=== PATIENT | female | born 1955 | race Caucasian/White ===

== ENCOUNTER → 2022-12-22 | Outpatient (CLI) | payer MEDICARE ==
[~2022-12-22] MED LIST: IOPAMIDOL 370 MG/ML 100 ML INFUS..BTL INJ ONE; SODIUM CHLORIDE 0.9% 250ML 250 ML ONE
[2022-12-22 08:57] LABS: CREATININE, SERUM 0.78 mg/dL (0.57-1.11)
== END ==
LOC: CT 08:10
PROVIDERS: ATTEND Urology
DX: R31.29 Other microscopic hematuria (principal)
CPT/HCPCS: 36415; 74178; 82565; 84520; J7050; Q9967

== ENCOUNTER 2023-05-17 12:17 | Inpatient (IN) | payer MEDICARE ==
[~2023-05-17] VITALS: Ht 152.4 cm; Wt 72.6 kg
[~2023-05-17 12:17] MED LIST changes: +ESTRADIOL1 MG VG; +FRUIT & VEGETA1 EACH PO; -IOPAMIDOL 370 MG/ML 100 ML INFUS..BTL INJ ONE; +MACROBID 100 M100 MG PO; +NP THYROID60 MG PO; +NUTRAFOL PO; +PROTONIX20 MG PO; -SODIUM CHLORIDE 0.9% 250ML 250 ML ONE; +SOMA350 MG PO; +UQORA PO; +VITAMIN D3 COM1 EACH PO
[2023-05-17] MEDS ORDERED: ASPIRIN 81 MG CHEW TAB PO ONE (12:30)
[2023-05-17] MEDS ORDERED: FENTANYL CITRATE/PF 100MCG/2 ML INJ IV ONE (12:30)
[2023-05-17 12:36] LABS: BASOPHILS % 0.3 % (0.0-1.0); EOSINOPHILS # (AUTO) 0.1 (0.0-0.4); EOSINOPHILS % 1.2 % (0.0-6.0); HEMATOCRIT 35.7 % (34.2-44.1); HEMOGLOBIN 12.3 g/dL (12.0-16.0); LYMPHOCYTES # (AUTO) 1.3 (1.0-3.2); LYMPHOCYTES % 13.1 % (18.0-39.1); MEAN CORPUSCULAR HEMOGLOBIN 32.4 pg (28-32); MEAN CORPUSCULAR HGB CONC 34.5 g/dL (31-35); MEAN CORPUSCULAR VOLUME 93.9 fL (81-99); MONOCYTES # (AUTO) 0.6 (0.2-0.8); MONOCYTES % 5.8 % (4.4-11.3); NEUTROPHILS # (AUTO) 7.9 (2.1-6.9); NEUTROPHILS % 79.4 % (38.7-80.0); PLATELET COUNT 214 x10e3/uL (140-360); RED CELL DISTRIBUTION WIDTH 12.6 % (11.7-14.4); WHITE BLOOD COUNT 9.96 x10e3/uL (4.8-10.8)
[2023-05-17 12:53] LABS: ANION GAP 15.6 mmol/L (8-16); BLOOD UREA NITROGEN 6 mg/dL (7-26); BUN/CREATININE RATIO 8 (6-25); CALCIUM 9.8 mg/dL (8.4-10.2); CARBON DIOXIDE 24 mmol/L (22-29); CHLORIDE 104 mmol/L (98-107); CREATINE KINASE 50 IU/L (29-168); CREATININE, SERUM 0.76 mg/dL (0.57-1.11); GLUCOSE 105 mg/dL (74-118); POTASSIUM 3.6 mmol/L (3.5-5.1); SODIUM 140 mmol/L (136-145)
[2023-05-17] MEDS ORDERED: IOPAMIDOL 370 MG/ML 100 ML INFUS..BTL INJ ONE (13:04)
[2023-05-17 15:05] LABS: CLARITY,URINE SL CLOUDY (CLEAR); COLOR,URINE AMBER (YELLOW); KETONES,URINE NEGATIVE (NEGATIVE); LEUKOCYTE ESTERASE ,URINE MODERATE (NEGATIVE); NITRITE,URINE NEGATIVE (NEGATIVE); PROTEIN,URINE DIPSTICK NEGATIVE (NEGATIVE); URINE UROBILINOGEN 0.2 mg/dL (0.2 - 1)
[2023-05-17 15:21] LABS: BACTERIA,URINE FEW /HPF; EPITHELIAL CELLS,URINE MODERATE /LPF; WBC,URINE (MAN) 21-50 /HPF (0-5)
[2023-05-17] MEDS ORDERED: NITROGLYCERIN 0.4 MG SUBL SL PRN (16:30)
[2023-05-17] MEDS ORDERED: SODIUM CHLORIDE FLUSH 10 ML SYR INJ PRN (16:30)
[2023-05-17] MEDS ORDERED: FENTANYL CITRATE/PF 100MCG/2 ML INJ IV PRN (16:30)
[2023-05-17 18:17] VITALS: BP 112/54; PULSE 94; RESP 19; TEMP 97.5; O2SAT 100
[2023-05-17] MEDS ORDERED: PANTOPRAZOLE SO40 MG (18:58)
[2023-05-17] MEDS ORDERED: CARISOPRODOL350 MG (18:58)
[2023-05-17] MEDS ORDERED: HYDROCODON-ACE1 EA12 (18:58)
[2023-05-17] MEDS ORDERED: NP THYROID15 MG (18:58)
[2023-05-17] MEDS ORDERED: AMOX TR-K CLV1 EAC2 (18:58)
[2023-05-17] MEDS ORDERED: NITROFURANTOIN100 MG (18:58)
[2023-05-17] MEDS ORDERED: ACETAMINOPHEN 325 MG TAB PO PRN (19:30)
[2023-05-17] MEDS ORDERED: HYDROCODONE/APAP 5MG-325MG TAB PO PRN (19:30)
[2023-05-17] MEDS ORDERED: TRAMADOL HCL 50 MG TAB PO PRN (19:30)
[2023-05-17] MEDS ORDERED: HYDRALAZINE HCL 20 MG/ML VIAL IV PRN (19:30)
[2023-05-17 20:00] VITALS: BP 141/71; PULSE 91; RESP 18; TEMP 98; O2SAT 97
[2023-05-17 20:52] VITALS: PULSE 92; RESP 18; O2SAT 98
[2023-05-17] MEDS: MELATONIN 3 MG TAB PO SCH (21:09)
[2023-05-17] MEDS: HYDROCODONE/APAP 10MG-325MG TAB PO PRN (21:09)
[2023-05-18] VITALS (10 sets, daily range): BP systolic 115–166; BP diastolic 65–90; PULSE 70–87; RESP 15–19; TEMP 97.7–99; O2SAT 96–100
[2023-05-18] MEDS: HYDROMORPHONE 1MG/1ML INJ IV PRN ×3 (00:44→14:14)
[2023-05-18] MEDS: HYDROCODONE/APAP 10MG-325MG TAB PO PRN ×3 (03:13→19:13)
[2023-05-18 05:25] LABS: BASOPHILS % 0.6 % (0.0-1.0); EOSINOPHILS # (AUTO) 0.2 (0.0-0.4); EOSINOPHILS % 3.4 % (0.0-6.0); HEMATOCRIT 32.6 % (34.2-44.1); HEMOGLOBIN 11.2 g/dL (12.0-16.0); LYMPHOCYTES # (AUTO) 1.5 (1.0-3.2); LYMPHOCYTES % 22.2 % (18.0-39.1); MEAN CORPUSCULAR HEMOGLOBIN 32.3 pg (28-32); MEAN CORPUSCULAR HGB CONC 34.4 g/dL (31-35); MEAN CORPUSCULAR VOLUME 93.9 fL (81-99); MONOCYTES # (AUTO) 0.6 (0.2-0.8); MONOCYTES % 8.7 % (4.4-11.3); NEUTROPHILS # (AUTO) 4.4 (2.1-6.9); NEUTROPHILS % 64.8 % (38.7-80.0); PLATELET COUNT 195 x10e3/uL (140-360); RED BLOOD COUNT 3.47 x10e6/uL (3.6-5.1); RED CELL DISTRIBUTION WIDTH 12.5 % (11.7-14.4); WHITE BLOOD COUNT 6.75 x10e3/uL (4.8-10.8)
[2023-05-18 05:48] LABS: ALBUMIN 3.3 g/dL (3.5-5.0); ALBUMIN/GLOBULIN RATIO 1.4 (0.8-2.0); ANION GAP 11.7 mmol/L (8-16); CREATININE, SERUM 0.71 mg/dL (0.57-1.11); MAGNESIUM 1.6 MG/DL (1.3-2.1); POTASSIUM 3.7 mmol/L (3.5-5.1)
[2023-05-18 06:02] LABS: CHOL/HDL RATIO 3.1 (3.0-3.6)
[2023-05-18] MEDS: SENNOSIDES 8.6 MG TAB PO SCH (08:23)
[2023-05-18] MEDS: POLYETHYLENE GLYCOL 3350 17 GM PACK PO SCH (08:23)
[2023-05-18] MEDS: PANTOPRAZOLE SOD 40 MG TABEC PO SCH (08:23)
[2023-05-18] MEDS: ASPIRIN 81 MG ENTERIC COATED PO SCH (08:23)
[2023-05-18 11:26] LABS: CREATINE KINASE 30 IU/L (29-168)
[2023-05-18] MEDS: ONDANSETRON HCL INJ 2MG/ML 2ML 2 MG/ML VIAL IV PRN ×2 (11:36→17:16)
[2023-05-18] MEDS: MELATONIN 3 MG TAB PO SCH (20:51)
[2023-05-19] VITALS (8 sets, daily range): BP systolic 112–159; BP diastolic 60–87; PULSE 70–118; RESP 17–20; TEMP 97.7–99.2; O2SAT 96–100
[2023-05-19] MEDS: HYDROMORPHONE 1MG/1ML INJ IV PRN ×3 (02:12→20:23)
[2023-05-19] MEDS: PANTOPRAZOLE SOD 40 MG TABEC PO SCH (07:30)
[2023-05-19] MEDS: POLYETHYLENE GLYCOL 3350 17 GM PACK PO SCH (09:00)
[2023-05-19] MEDS: ASPIRIN 81 MG ENTERIC COATED PO SCH (09:24)
[2023-05-19] MEDS: SENNOSIDES 8.6 MG TAB PO SCH (09:24)
[2023-05-19] MEDS: HYDROCODONE/APAP 10MG-325MG TAB PO PRN ×2 (09:32→22:56)
[2023-05-19] MEDS: ONDANSETRON HCL INJ 2MG/ML 2ML 2 MG/ML VIAL IV PRN (17:38)
[2023-05-19] MEDS ORDERED: CITRATE OF MAGNESIA 300ML BOTTLE PO ONE (18:00)
[2023-05-19] MEDS: MELATONIN 3 MG TAB PO SCH (22:12)
[2023-05-20] VITALS (8 sets, daily range): BP systolic 98–164; BP diastolic 62–92; PULSE 72–93; RESP 18–20; TEMP 97.7–98.2; O2SAT 97–100
[2023-05-20] MEDS: ONDANSETRON HCL INJ 2MG/ML 2ML 2 MG/ML VIAL IV PRN ×2 (04:05→20:52)
[2023-05-20] MEDS: HYDROMORPHONE 1MG/1ML INJ IV PRN ×4 (04:07→20:35)
[2023-05-20] MEDS ORDERED: BISACODYL 10 MG SUPP PR PRN (08:15)
[2023-05-20] MEDS: POLYETHYLENE GLYCOL 3350 17 GM PACK PO SCH (08:17)
[2023-05-20] MEDS: ASPIRIN 81 MG ENTERIC COATED PO SCH (08:17)
[2023-05-20] MEDS: PANTOPRAZOLE SOD 40 MG TABEC PO SCH (08:18)
[2023-05-20] MEDS: SENNOSIDES 8.6 MG TAB PO SCH (08:18)
[2023-05-20] MEDS ORDERED: CEFTRIAXONE 1 GM VIAL ONE (19:54)
[2023-05-20] MEDS: MELATONIN 3 MG TAB PO SCH (20:35)
[2023-05-21] VITALS (10 sets, daily range): BP systolic 126–149; BP diastolic 58–80; PULSE 70–89; RESP 17–20; TEMP 97.5–98.4; O2SAT 96–100
[2023-05-21] MEDS: HYDROMORPHONE 1MG/1ML INJ IV PRN ×3 (04:33→16:38)
[2023-05-21 06:26] LABS: BASOPHILS % 0.8 % (0.0-1.0); EOSINOPHILS # (AUTO) 0.2 (0.0-0.4); EOSINOPHILS % 4.6 % (0.0-6.0); HEMATOCRIT 34.1 % (34.2-44.1); HEMOGLOBIN 11.4 g/dL (12.0-16.0); LYMPHOCYTES # (AUTO) 1.2 (1.0-3.2); LYMPHOCYTES % 23.1 % (18.0-39.1); MEAN CORPUSCULAR HEMOGLOBIN 31.9 pg (28-32); MEAN CORPUSCULAR HGB CONC 33.4 g/dL (31-35); MEAN CORPUSCULAR VOLUME 95.5 fL (81-99); MONOCYTES # (AUTO) 0.5 (0.2-0.8); MONOCYTES % 9.3 % (4.4-11.3); NEUTROPHILS # (AUTO) 3.3 (2.1-6.9); NEUTROPHILS % 61.8 % (38.7-80.0); PLATELET COUNT 248 x10e3/uL (140-360); RED BLOOD COUNT 3.57 x10e6/uL (3.6-5.1); RED CELL DISTRIBUTION WIDTH 12.3 % (11.7-14.4); WHITE BLOOD COUNT 5.27 x10e3/uL (4.8-10.8)
[2023-05-21 06:53] LABS: ALBUMIN 3.2 g/dL (3.5-5.0); ALBUMIN/GLOBULIN RATIO 1.1 (0.8-2.0); ANION GAP 14.4 mmol/L (8-16); CALCIUM 9.2 mg/dL (8.4-10.2); CREATININE, SERUM 0.78 mg/dL (0.57-1.11); POTASSIUM 4.4 mmol/L (3.5-5.1)
[2023-05-21] MEDS ORDERED: NITROSTAT0.4 MG SL (07:48)
[2023-05-21] MEDS ORDERED: ASPIRIN EC81 MG PO (07:48)
[2023-05-21] MEDS: PANTOPRAZOLE SOD 40 MG TABEC PO SCH (08:36)
[2023-05-21] MEDS: POLYETHYLENE GLYCOL 3350 17 GM PACK PO SCH (08:37)
[2023-05-21] MEDS: SENNOSIDES 8.6 MG TAB PO SCH (08:37)
[2023-05-21] MEDS: ASPIRIN 81 MG ENTERIC COATED PO SCH (08:37)
[2023-05-21] MEDS: ONDANSETRON HCL INJ 2MG/ML 2ML 2 MG/ML VIAL IV PRN ×3 (10:36→21:44)
[2023-05-21] MEDS ORDERED: HYDROMORPHONE 1MG/1ML INJ IV ONE ×2 (21:00→21:15)
[2023-05-21] MEDS: MELATONIN 3 MG TAB PO SCH (22:23)
[2023-05-22 00:28] VITALS: BP 133/61; PULSE 71; RESP 20; TEMP 98.1; O2SAT 95
[2023-05-22] MEDS: ONDANSETRON HCL INJ 2MG/ML 2ML 2 MG/ML VIAL IV PRN (03:31)
[2023-05-22] MEDS: HYDROMORPHONE 1MG/1ML INJ IV PRN (03:34)
[2023-05-22 04:00] VITALS: BP 157/61; PULSE 62; RESP 18; TEMP 98; O2SAT 100
[2023-05-22 06:55] VITALS: PULSE 72; RESP 18; O2SAT 96
[2023-05-22 08:45] VITALS: BP 157/61; PULSE 72; RESP 18; TEMP 98; O2SAT 96
[2023-05-22 08:52] VITALS: BP 145/75; PULSE 76; RESP 16; TEMP 99; O2SAT 100
[2023-05-22] MEDS: ASPIRIN 81 MG ENTERIC COATED PO SCH (09:09)
[2023-05-22] MEDS: POLYETHYLENE GLYCOL 3350 17 GM PACK PO SCH (09:09)
[2023-05-22] MEDS: SENNOSIDES 8.6 MG TAB PO SCH (09:09)
[2023-05-22] MEDS: PANTOPRAZOLE SOD 40 MG TABEC PO SCH (09:09)
[2023-05-22] MEDS: HYDROCODONE/APAP 10MG-325MG TAB PO PRN (09:27)
[2023-05-22] MEDS ORDERED: DIFLUCAN100 MG PO (10:51)
== END 2023-05-22 12:00 | disposition home or self-care (01) | DRG 690 ==
LOC: ER 12:20 → ERHOLD 16:23 → MED/SURG2 18:05
PROVIDERS: ADMIT Internal Medicine; ATTEND Internal Medicine
PROC: 02HV33Z Insertion of Infusion Device into Superior Vena Cava, Percutaneous Approach (ICD-10-PCS; principal; 2023-05-20)
PROC: B548ZZA Ultrasonography of Superior Vena Cava, Guidance (ICD-10-PCS; 2023-05-20)
DX: N39.0 Urinary tract infection, site not specified (principal); J90 Pleural effusion, not elsewhere classified; Z16.24 Resistance to multiple antibiotics; R07.89 Other chest pain; B96.5 Pseudomonas (aeruginosa) (mallei) (pseudomallei) as the cause of diseases classified elsewhere; K21.9 Gastro-esophageal reflux disease without esophagitis; N20.0 Calculus of kidney; K59.00 Constipation, unspecified; E78.5 Hyperlipidemia, unspecified; E66.9 Obesity, unspecified; Z68.31 Body mass index [BMI] 31.0-31.9, adult; R31.9 Hematuria, unspecified; E03.9 Hypothyroidism, unspecified; Z87.440 Personal history of urinary (tract) infections
CPT/HCPCS: 0223U; 36415; 36569; 71045; 71260; 80048; 80053; 80061; 81001; 82550; 83735; 84484; 85025; 85379; 87086; 87186; 93005; 93306; 94799; 99284; J0692; J0696; J1170; J1335; J2405; Q9967

== ENCOUNTER → 2024-11-21 | Outpatient (REF) | payer MEDICARE ==
[~2024-11-21] MED LIST changes: +AMOX TR-K CLV1 EAC2; +ASPIRIN EC81 MG PO; +CARISOPRODOL350 MG; +DIFLUCAN100 MG PO; +FLOMAX0.4 MG PO; +HYDROCODON-ACE1 EA12; +NITROFURANTOIN100 MG; +NITROSTAT0.4 MG SL; +NP THYROID15 MG; +PANTOPRAZOLE SO40 MG
== END ==
LOC: CT 11:47
PROVIDERS: ATTEND Urology
DX: N20.0 Calculus of kidney (principal)
CPT/HCPCS: 74176

== ENCOUNTER → 2025-02-24 | Day surgery (SDC) | payer MEDICARE ==
[2025-02-20 12:59] LABS: BASOPHILS % 0.9 % (0.0-1.0); EOSINOPHILS % 4.7 % (0.0-6.0); LYMPHOCYTES % 32.4 % (18.0-39.1); MONOCYTES % 6.0 % (4.4-11.3); NEUTROPHILS % 55.8 % (38.7-80.0); RED CELL DISTRIBUTION WIDTH 13.2 % (11.7-14.4)
[2025-02-20 13:40] LABS: EST GLOMERULAR FILTRATION RATE 77.0 ML/MIN (>=60)
[~2025-02-24] MED LIST changes: +DEXAMETHASONE SOD PHOS INJ 4 MG/ML SDV ONE; +EPHEDRINE SULFATE INJ 50 MG/ML VIAL ONE; +FAMOTIDINE 20 MG/2 ML VIAL IV ONE; +FENTANYL CITRATE/PF 100MCG/2 ML INJ ONE; +GLYCOPYRROLATE INJ 0.2 MG/ML VIAL ONE; +LIDOCAINE HCL 2% LOCAL INJ 5 ML SDV VIAL INJ ONE; +LOSARTAN POTASS25 MG PO; +MAGNESIUM; +MAGNESIUM CITR100 MG PO; +METHENAMINE HIPP1 GM PO; +MIDAZOLAM HCL 2 MG/2 ML VIAL ONE; +NITROFURANTOIN50 MG PO; +ONDANSETRON HCL INJ 2MG/ML 2ML 2 MG/ML VIAL ONE; +PROPOFOL IV EMULSION 10 MG/ML 20 ML VIAL ONE
[2025-02-24] MEDS: SODIUM CHLORIDE 0.9% 1000ML 1,000 ML ONE (05:53)
[2025-02-24] MEDS: GENTAMICIN 80MG/NS 100 ML 200 ML IV ONE (05:53)
[2025-02-24] MEDS: LEVOFLOXACIN 500MG/D5W 100ML 100 ML IV ONE (05:54)
[2025-02-24 08:14] VITALS: TEMP 98.1
[2025-02-24] MEDS: PHENAZOPYRIDINE HCL 100 MG TAB ONE (08:43)
[2025-02-24] MEDS: ONDANSETRON HCL INJ 2MG/ML 2ML 2 MG/ML VIAL IV ONE (09:16)
[2025-02-24 09:35] VITALS: BP 136/77; PULSE 74; RESP 16; O2SAT 100
== END | disposition home or self-care (01) ==
LOC: OR 05:27
PROVIDERS: ATTEND Urology
DX: N20.0 Calculus of kidney (principal); N39.0 Urinary tract infection, site not specified; N32.89 Other specified disorders of bladder; N81.10 Cystocele, unspecified; N81.6 Rectocele; N95.2 Postmenopausal atrophic vaginitis; I10 Essential (primary) hypertension; E03.9 Hypothyroidism, unspecified; K21.9 Gastro-esophageal reflux disease without esophagitis; F41.9 Anxiety disorder, unspecified; Z01.812 Encounter for preprocedural laboratory examination; Z01.818 Encounter for other preprocedural examination; Z79.82 Long term (current) use of aspirin; Z79.899 Other long term (current) drug therapy
CPT/HCPCS: 36415; 50590; 71046; 74018; 80048; 83970; 84550; 85025; 87086; C1758; J1100; J1308; J1580; J1956; J2003; J2250; J2405; J2704; J3010; J7030